=== PATIENT | male | born 1975 | race Caucasian/White ===

== ENCOUNTER 2020-07-22 15:36 | Emergency (ER) | payer MEDICAID ==
[~2020-07-22] VITALS: Ht 190.5 cm; Wt 84.1 kg
[2020-07-22 17:09] LABS: BASOPHILS % (AUTO) 0.4 % (0-1); EOSINOPHILS % (AUTO) 0.2 % (0-6); HEMATOCRIT 50.2 % (42.0-52.0); HEMOGLOBIN 17.6 g/dl (14.0-17.9); LYMPHOCYTES # (AUTO) 1.1 X10'3 (1.1-4.8); MEAN CORPUSCULAR HEMOGLOBIN 30.6 PG (27.0-31.0); MEAN CORPUSCULAR HGB CONC 35.1 g/dL (33.0-36.5); MEAN CORPUSCULAR VOLUME 87.3 FL (78-98); MEAN PLATELET VOLUME 7.8 FL (7.4-10.4); MONOCYTES # (AUTO) 0.5 X10'3 (0-0.9); MONOCYTES % (AUTO) 4.8 % (2-12); NEUTROPHILS # (AUTO) 9.3 X10'3 (1.8-7.7); NEUTROPHILS % (AUTO) 84.6 % (42-75); PLATELET COUNT 275 X10'3 (140-440); RED BLOOD COUNT 5.75 X10'6 (4.70-6.10); RED CELL DISTRIBUTION WIDTH 13.4 % (11.5-14.5)
[2020-07-22 17:32] LABS: ALANINE AMINOTRANSFERASE 32 U/L (12-78); ALBUMIN/GLOBULIN RATIO 0.9 (1.1-1.5); ALKALINE PHOSPHATASE 120 IU/L (46-116); ANION GAP 11 (8-16); ASPARTATE AMINO TRANSFERASE 33 U/L (10-37); BILIRUBIN,TOTAL 0.6 MG/DL (0.1-1.0); BLOOD UREA NITROGEN 11 MG/DL (7-18); BUN/CREATININE RATIO 12.1 (5.4-32.0); CHLORIDE 95 MMOL/L (99-107); CREATININE 0.91 MG/DL (0.60-1.10); GLUCOSE 128 MG/DL (70-104); SODIUM 136 MMOL/L (135-145); TOTAL CARBON DIOXIDE 29.9 MMOL/L (24-32); TOTAL PROTEIN 8.3 G/DL (6.4-8.2); eGFR > 90 ML/MIN
[2020-07-22 17:34] LABS: POTASSIUM 2.6 MMOL/L (3.5-5.1)
[2020-07-22] MEDS ORDERED: potassium Cl 20 mEq SR tablet PO ONE (18:15)
[2020-07-22] MEDS ORDERED: potassium Cl 10 mEq/100mL bag IV ONE ×2 (18:15→20:20)
[2020-07-22] MEDS ORDERED: magnesium 2GM in 50ml NS 50 ML IV ONE (18:15)
[2020-07-22] MEDS ORDERED: bisacodyl 5mg tablet.DR PO ONE (18:20)
[2020-07-22] MEDS ORDERED: ibuprofen tablet 400 MG TABLET PO ONE (18:40)
[2020-07-22] MEDS ORDERED: acetaminophen 325mg tablet PO ONE (18:40)
[2020-07-22] MEDS ORDERED: dicyclomine 10 MG capsule PO ONE (18:40)
[2020-07-22 19:32] LABS: CLARITY,URINE CLEAR (Clear); COLOR,URINE YELLOW (Yellow); GLUCOSE, URINE NEGATIVE (Neg); KETONES,URINE 15 mg/dl (Neg); LEUKOCYTE ESTERASE ,URINE NEGATIVE (Neg); NITRITES, URINE NEGATIVE (Neg); OCCULT BLOOD,URINE SMALL (Neg); PH,URINE 6.5 (4.8-8.0); PROTEIN,URINE NEGATIVE (Neg); UROBILINOGEN,URINE 0.2 E.U/dL (0.2-1.0)
[2020-07-22 19:38] LABS: UA COLLECTION TYPE CLN CATCH MIDSTREAM
[2020-07-22 19:46] LABS: BACTERIA,URINE NONE SEEN /HPF (Neg); SQUAMOUS EPITHELIAL CELL,UR NONE SEEN /LPF (FEW); WBC,URINE NONE SEEN /HPF (0-4)
[2020-07-22] MEDS ORDERED: MELO-100 PO (20:03)
[2020-07-22] MEDS ORDERED: POTA20TA19 PO (20:03)
[2020-07-22] MEDS ORDERED: BISA-78 PO (20:03)
--- NOTE | 2020-07-22 21:35 | NUR ---
His IV was hurting, the K is running so I went to hang IV NS to run along with it and he became angry and said "I just want it out." Left room, Tony KATZ aware.
[2020-07-22 21:41] VITALS: BP 136/107
== END 2020-07-22 21:43 | disposition home or self-care (01) ==
LOC: ER 15:37
DX: E87.6 Hypokalemia (principal); R10.84 Generalized abdominal pain; K59.00 Constipation, unspecified; Z79.899 Other long term (current) drug therapy
CPT/HCPCS: 36415; 80053; 81001; 85025; 96365; 96366; 96368; 99284; J3475; J3480